=== PATIENT | male | born 1995 | race Caucasian/White ===

== ENCOUNTER 2017-04-15 17:03 | Emergency (ER) | payer SELFPAY ==
[~2017-04-15] VITALS: Ht 172.7 cm; Wt 72.6 kg
[2017-04-15 17:27] VITALS: BP 124/72
--- NOTE | 2017-04-15 20:16 | NUR ---
PATIENT LEFT WITHOUT BEING SEEN BY DR. ANG. NO FURTHER CARE PROVIDED FOR PATIENT.
== END 2017-04-15 20:16 | disposition left against medical advice (07) ==
LOC: MED 17:03
DX: R51 Headache (principal); Z53.21 Procedure and treatment not carried out due to patient leaving prior to being seen by health care provider

== ENCOUNTER 2020-05-04 08:41 | Emergency (ER) | payer SELFPAY ==
[~2020-05-04] VITALS: Ht 170.2 cm; Wt 80.3 kg
[2020-05-04 08:42] VITALS: BP 135/73
--- NOTE | 2020-05-04 08:48 | NUR ---
24 y/o male biba from the [address] for altered mental status. Pt admits to meth use 2 days ago. Pt states he thinks he is dehydrated. Skin warm, dry, and intact. Mucus membranes moist. Pt sitting upright awake and alert. Denies pain at this time. x2 side rails raised, bed locked and in lowest position. VSS medhx: psych
--- NOTE | 2020-05-04 09:08 | NUR ---
Dr Reilly at bedside examining pt
[2020-05-04] MEDS ORDERED: MECLIZINE 25 MG TAB PO ONE (09:15)
[2020-05-04 10:00] VITALS: BP 129/69
--- NOTE | 2020-05-04 10:00 | NUR ---
Pt received homeless packet information upon discharge
--- NOTE | 2020-05-04 10:00 | NUR ---
Patient discharged with v/s stable. Written and verbal after care instructions given and explained. Patient alert, oriented and verbalized understanding of instructions. Ambulatory with steady gait. All questions addressed prior to discharge. ID band removed. Patient advised to follow up with PMD. Rx of Meclizine 25mg given. Patient educated on indication of medication including possible reaction and side effects. Opportunity to ask questions provided and answered.
== END 2020-05-04 10:00 | disposition home or self-care (01) ==
LOC: MED 08:41
DX: R42 Dizziness and giddiness (principal); F15.10 Other stimulant abuse, uncomplicated
CPT/HCPCS: 99282; J8597

== ENCOUNTER 2020-05-04 12:34 | Emergency (ER) | payer SELFPAY ==
[~2020-05-04] VITALS: Ht 175.3 cm; Wt 81.6 kg
[2020-05-04 12:41] VITALS: BP 131/67
[2020-05-04] MEDS ORDERED: OLANZapine 5 MG ODT SL ONE ×2 (13:15→14:20)
[2020-05-04 17:51] VITALS: BP 118/64
== END 2020-05-04 17:51 | disposition home or self-care (01) ==
LOC: MED 12:34
DX: F29 Unspecified psychosis not due to a substance or known physiological condition (principal); F15.10 Other stimulant abuse, uncomplicated
CPT/HCPCS: 99283

== ENCOUNTER 2020-06-12 10:33 | Emergency (ER) | payer SELFPAY ==
[~2020-06-12] VITALS: Ht 172.7 cm; Wt 127.0 kg
[2020-06-12 10:44] VITALS: BP 128/75
--- NOTE | 2020-06-12 11:27 | NUR ---
24 y/o male presents to ED stating he wants chest x-ray due to "black inside his chest." Denies pain. Admits to substance abuse
[2020-06-12 11:28] VITALS: BP 128/75
--- NOTE | 2020-06-12 11:28 | NUR ---
Patient discharged with v/s stable. Written and verbal after care instructions given and explained. Patient alert, oriented and verbalized understanding of instructions. Ambulatory with steady gait. All questions addressed prior to discharge. ID band removed. Patient advised to follow up with PMD. Rx of Xanax 1mg given. Patient educated on indication of medication including possible reaction and side effects. Opportunity to ask questions provided and answered.
== END 2020-06-12 11:28 | disposition home or self-care (01) ==
LOC: MED 10:33
DX: F15.10 Other stimulant abuse, uncomplicated (principal)
CPT/HCPCS: 99283